=== PATIENT | male | born 1995 | race Two or more races ===

== ENCOUNTER 2020-11-28 19:34 | Emergency (ER) | payer MEDICAID, OTHER ==
[~2020-11-28] VITALS: Ht 180.3 cm; Wt 86.2 kg
[2020-11-29] MEDS ORDERED: FLUORESCEIN SOD OPTH TEST STRIP RIGHTEYE ONE
[2020-11-29] MEDS ORDERED: TETRACAINE HCL 0.5% OPTH(EYE) SOLN 4ML RIGHTEYE ONE
[2020-11-29 01:46] VITALS: BP 117/84
== END 2020-11-29 00:55 | disposition home or self-care (01) ==
LOC: ER 19:34
DX: T15.91XA Foreign body on external eye, part unspecified, right eye, initial encounter (principal); J45.909 Unspecified asthma, uncomplicated; X58.XXXA Exposure to other specified factors, initial encounter; Y93.89 Activity, other specified; Y92.89 Other specified places as the place of occurrence of the external cause; Y99.8 Other external cause status
CPT/HCPCS: 99284; J7030